=== PATIENT | male | born 1945 | race Caucasian/White ===

== ENCOUNTER 2017-01-17 12:32 | Outpatient (CLI) | payer OTHER ==
--- NOTE | 2017-01-17 13:25 | DIAGNOSTIC IMAGING REPORT ---
PROCEDURE: XR CHEST 2 VIEW INDICATION: COUGHX 2-3WKS HX EXPOSURE TO AGENT ORANGE ASBESTOS EXPOSURE TECHNIQUE: PA and lateral views. COMPARISON: None. FINDINGS: Lungs are clear. Heart and mediastinum are normal. Thorax is normal. IMPRESSION: 1. Negative chest.
[2017-03-07] MEDS ORDERED: HYDROCHLOROTHIA25 MG PO (10:43)
[2017-03-07] MEDS ORDERED: ATENOLOL50 MG PO (10:43)
[2017-03-07] MEDS ORDERED: LISINOPRIL40 MG PO (10:44)
[2017-03-07] MEDS ORDERED: SIMVASTATIN20 MG PO (10:44)
== END 2017-01-17 23:00 ==
LOC: XR SRH 12:32
DX: R05 Cough (principal)

== ENCOUNTER 2017-01-20 12:45 | Outpatient (CLI) | payer OTHER ==
[2017-03-07] MEDS ORDERED: HYDROCHLOROTHIA25 MG PO (10:43)
[2017-03-07] MEDS ORDERED: ATENOLOL50 MG PO (10:43)
[2017-03-07] MEDS ORDERED: LISINOPRIL40 MG PO (10:44)
[2017-03-07] MEDS ORDERED: SIMVASTATIN20 MG PO (10:44)
== END 2017-01-20 23:00 | disposition home or self-care (01) ==
LOC: RT SRH 12:45
DX: I10 Essential (primary) hypertension (principal); R06.02 Shortness of breath

== ENCOUNTER 2017-01-26 10:17 | Outpatient (CLI) | payer OTHER ==
--- NOTE | 2017-01-26 16:56 | DIAGNOSTIC IMAGING REPORT ---
PROCEDURE: US ECHOCARDIOGRAM INDICATION: Shortness of breath and hypertension TECHNIQUE: This is a technically adequate study. The patient is in sinus rhythm. COMPARISON: None FINDINGS: Left ventricle normal in size with end diastolic dimension of 4.9 cm. The there is mild to moderate concentric left ventricular hypertrophy. Left ventricular ejection fraction is normal and 75%. There is grade 1 diastolic dysfunction. Wall motion is normal. Right ventricle normal size and function. Left atrium mildly dilated Right atrium normal size. Aortic valve there is mild sclerosis. No stenosis. There is mild insufficiency. Mitral valve normal in structure and function with trace to mild insufficiency. Tricuspid valve normal in structure and function with trace to mild insufficiency. Pulmonary artery systolic pressure is estimated at 30 mmHg. Pulmonic valve normal in structure and function Ascending aorta and dilated to 4 cm. Pericardium appears normal without effusion. IMPRESSION: Normal left ventricular ejection fraction. Mild bordering on moderate concentric left ventricular hypertrophy. Grade 1 diastolic dysfunction. Mild aortic valve insufficiency. Dilated ascending aorta at 4 cm.
[2017-03-07] MEDS ORDERED: HYDROCHLOROTHIA25 MG PO (10:43)
[2017-03-07] MEDS ORDERED: ATENOLOL50 MG PO (10:43)
[2017-03-07] MEDS ORDERED: LISINOPRIL40 MG PO (10:44)
[2017-03-07] MEDS ORDERED: SIMVASTATIN20 MG PO (10:44)
== END 2017-01-26 23:00 ==
LOC: US SRH 10:17
DX: R06.02 Shortness of breath (principal); I10 Essential (primary) hypertension; I77.810 Thoracic aortic ectasia